=== PATIENT | female | born 2000 | race African-American/Black ===

== ENCOUNTER 2020-08-12 20:59 | Emergency (ER) | payer OTHER ==
--- NOTE | 2020-08-12 21:15 | NUR ---
PATIENT CALLED TO BE TRIAGE NO RESPONSE PATIENT LEFT WITHOUT BEING SEEN BY DR. MCGOWAN. NO FURTHER CARE PROVIDED FOR PATIENT.
--- NOTE | 2020-08-12 21:20 | NUR ---
CALLED FOR THE SECOND TIME, NO RESPONSE
--- NOTE | 2020-08-12 21:25 | NUR ---
CALLED FOR THE THIRD TIME NO RESPONSE
== END 2020-08-12 21:15 | disposition left against medical advice (07) ==
LOC: MED 20:59
DX: Z53.21 Procedure and treatment not carried out due to patient leaving prior to being seen by health care provider (principal)